=== PATIENT | male | born 1930 | race Caucasian/White ===

== ENCOUNTER 2016-10-09 16:59 | Emergency (ER) | payer MEDICARE | END 2016-10-09 18:55 | disposition home or self-care (01) | LOC: ER 16:59 | DX: N39.0 Urinary tract infection, site not specified (principal); R41.0 Disorientation, unspecified; Z86.73 Personal history of transient ischemic attack (TIA), and cerebral infarction without residual deficits; E11.9 Type 2 diabetes mellitus without complications; I10 Essential (primary) hypertension; K21.9 Gastro-esophageal reflux disease without esophagitis; Z87.442 Personal history of urinary calculi; Z90.49 Acquired absence of other specified parts of digestive tract; Z79.82 Long term (current) use of aspirin; Z79.899 Other long term (current) drug therapy; Z79.84 Long term (current) use of oral hypoglycemic drugs; Z88.1 Allergy status to other antibiotic agents | CPT/HCPCS: 36415 ==

== ENCOUNTER 2016-10-09 21:02 | Emergency (ER) | payer MEDICARE | END 2016-10-09 22:15 | disposition short-term general hospital (02) | LOC: ER 21:02 | DX: I63.9 Cerebral infarction, unspecified (principal); D69.6 Thrombocytopenia, unspecified; I10 Essential (primary) hypertension; K21.9 Gastro-esophageal reflux disease without esophagitis; Z79.82 Long term (current) use of aspirin; Z79.899 Other long term (current) drug therapy | CPT/HCPCS: 36415; 96365; J2997 ==